=== PATIENT | female | born 1980 | race Caucasian/White ===

== ENCOUNTER 2017-05-27 21:46 | Observation (INO) | payer OTHER ==
[~2017-05-27 21:46] MED LIST: ACETAMINOPHEN 325 MG TAB PO PRN; ACETAMINOPHEN/HYDROcodone 325 MG/5 MG TAB PO PRN; ALBU6.7H INH; ALLO100T PO; ALPR-138 PO; ALPR0.5T3 PO; AUGM875 PO; BISACODYL 10 MG SUPP RECTAL PRN; CEPH500C3 PO; GLUCTAB; GUAI100S6 PO; HYDR12.56 PO; HYDR25TA5 PO; LACTULOSE SYRUP 20 GM/30 ML CUP PO PRN; LEVA500T33 PO; LEVO75TA3 PO; MORPHINE SULFATE 4 MG/ML INJ IV PUSH PRN; NAPR1TAB98 PO; OMEP20TA PO; ONDANSETRON HCL 4 MG/2 ML VIAL IVP PRN; PRED20 PO; PRIL10CA PO; ROSU10 PO; SENNOSIDES 8.6 MG TAB PO PRN; SENO8.6T5 PO; SIMV5TAB32 PO; SYNT25TA; TOPI1TAB97 PO; TRAM50TA PO; TRAZ100T6 PO; VENL150C39 PO; VENL25TA14 PO; VIVE0.02 T-DERMAL
[2017-05-27 21:56] VITALS: BP 150/70; PULSE 96; RESP 18; TEMP 99.5; O2SAT 96
--- NOTE | 2017-05-27 23:24 | HHI.HP ---
[facility] Service [facility] Primary Care Physician Robb Pierre MD Admission Diagnosis Diagnoses: Chief Complaint: increasing rectal pain Travel History International Travel<30 Days: No Contact w/Intl Traveler <30 Da: No History of Present Illness 37-year-old female with a history of hypothyroidism, anxiety, HLD, HTN, gout, GERD, gastroparesis and diabetes presented to the ED with complaints of severe rectal pain, constipation , and unable to void status post hemorrhoid banding 2 days ago. Patient states she underwent a hemorrhoid banding 2 days ago by a colorectal surgeon in [place], and what was supposed to be a 20 minute procedure ended up taking a few hours. Patient states ever since she has been in excruciating pain, 10 out of 10. She denies being discharged on any antibiotics and states the tramadol pain medicine was not helping. She has not had a bowel movement since before surgery, and has been unable to urinate. A Gates was placed in the deltoid ED prior to coming to the main facility. She does have associated nausea and states she vomited once this morning, and rectal ecchymosis. Patient denies any chest pain, shortness of breath, rectal bleeding, dizziness, rash or headaches. Review of Systems Except as stated in HPI: all other systems reviewed are Neg Past Family Social History Past Medical History Hypothyroidism Anxiety Depression HLD HTN Gout GERD Gastroparesis Diabetes Past Surgical History Hemorrhoid banding 05/26/17 Hysterectomy Reported Medications Reported Meds & Active Scripts Active Reported Hydrochlorothiazide 25 Mg Tab 25 Mg PO DAILY Crestor (Rosuvastatin Calcium) 10 Mg Tab 10 Mg PO DAILY Allopurinol 100 Mg Tab 100 Mg PO BID Alprazolam 0.5 Mg Tab 0.5 Mg PO Q6H PRN Levothyroxine (Levothyroxine Sodium) 75 Mcg Tab 75 Mcg PO DAILY Senokot (Sennosides) 8.6 Mg Tab 8.6 Mg PO DAILY Topiramate 25 Mg Tab 25 Mg PO BID Aleve PM (Naproxen Sodium-Diphenhydramine) 220-25 Mg Tab 2 Tab PO HS PRN Vivelle-Dot Patch 84 HR (Estradiol) 0.025 Mg/24 Hr Patch 1 Patch T-DERMAL 2XWEEK Remove old patch and discard when new patch being placed.Change same days of week. Omeprazole 20 Mg Tab 20 Mg PO BID Venlafaxine ER 24 HR (Venlafaxine HCl) 150 Mg Cap 150 Mg PO BID Trazodone (Trazodone HCl) 100 Mg Tablet 100 Mg PO HS Tramadol (Tramadol HCl) 50 Mg Tab 50 Mg PO Q6H PRN Allergies: Coded Allergies: [place] Thyroid (Verified Allergy, Severe, HIVES, 05/27/17) Pneumococcal Vaccine (Verified Allergy, Severe, LOCALIZED RXN, 05/27/17) Flu Vaccine (Verified Adverse Reaction, Severe, LOCALIZED RXN, 05/27/17) Tetanus Toxoid (Verified Adverse Reaction, Severe, LOCALIZED RXN, 05/27/17) Active Ordered Medications Current Medications Medications (Trade) Dose Ordered Sig/Golden Route Start Time Stop Time Status Last Admin (Tylenol) 650 mg Q4H PRN PO 05/27/17 20:45 05/27/17 22:04 (Zofran Inj) 4 mg Q6H PRN IVP 05/27/17 20:45 (Senokot) 17.2 mg Q12H PRN PO 05/27/17 20:45 (Dulcolax Supp) 10 mg DAILY PRN RECTAL 05/27/17 20:45 (Lactulose Liq) 30 ml DAILY PRN PO 05/27/17 20:45 Acetaminophen/ Hydrocodone Bitart 1 tab 1 tab Q6H PRN PO 05/27/17 20:45 Metronidazole 100 ml @ 100 mls/hr Q8H IV 05/28/17 00:00 05/28/17 00:19 (Cipro 400 Mg Premix) 200 ml @ 200 mls/hr Q12H IV 05/28/17 01:00 (Dilaudid Pf Inj) 0.2 mg Q4H PRN IV PUSH 05/28/17 00:00 05/28/17 00:17 Family History Dad: Heart disease Social History Patient denies any tobacco, alcohol, and illicit drug use Physical Exam Vital Signs Vital Signs Date Time Temp Pulse Resp B/P Pulse Ox O2 Delivery O2 Flow Rate FiO2 05/27/17 21:56 99.5 96 18 150/70 96 Physical Exam GENERAL: This is a well-nourished, well-developed patient, in no apparent distress. SKIN: rectal area ecchymosis. HEAD: Atraumatic. Normocephalic. EYES: Pupils equal round and reactive. ENT: Nose without bleeding, purulent drainage or septal hematoma. Airway patent. NECK: Trachea midline. No JVD or lymphadenopathy. Supple, nontender, no meningeal signs. CARDIOVASCULAR: Regular rate and rhythm without murmurs, gallops, or rubs. RESPIRATORY: Clear to auscultation. Breath sounds equal bilaterally. No wheezes , rales, or rhonchi. GASTROINTESTINAL: Abdomen soft, non-tender, nondistended. No hepato-splenomegaly , or palpable masses. No guarding. MUSCULOSKELETAL: Extremities without clubbing, cyanosis, or edema. No joint tenderness, effusion, or edema noted. No calf tenderness. NEUROLOGICAL: Awake and alert.Motor and sensory grossly within normal limits. Normal speech. Assessment and Plan Problem List: (1) Constipation ICD Code: K59.00 Status: Acute (2) Urinary retention ICD Code: R33.9 Status: Acute (3) Intractable pain ICD Code: R52 Status: Acute Assessment and Plan 37-year-old female with a history of hypothyroidism, anxiety, HLD, HTN, gout, GERD, gastroparesis and diabetes presented to the ED with complaints of severe rectal pain, constipation , and unable to void status post hemorrhoid banding 2 days ago. Patient states she underwent a hemorrhoid banding 2 days ago by a colorectal surgeon in [place], and what was supposed to be a 20 minute procedure ended up taking a few hours. Proctitis with Intractable pain, status post hemorrhoid banding 2 days ago Abdomen/pelvis CT shows mild edema surrounding the rectum suggesting mild proctitis. -Pain management with IV Dilaudid -Consult colorectal surgery for recommendations -IV antibiotics Flagyl and ciprofloxacin Fevers, MAXIMUM TEMPERATURE 101.[address] to hospital, suspecting due to recent surgery, no leukocytosis noted -Continue antibiotics as above -CBC in a.m. -UA and blood cultures ordered Constipation, somewhat chronic, a showed gastroparesis, recent constipation due to surgery -Stool softeners scheduled and prn Urinary retention, likely due to inflammation -Continue Gates DM, chronic: reorder home medications, and Accu checks Other chronic medical conditions: stable, will re order home medications when med rec is updated' DVT prophylaxis: SCDs Discussed Condition With Patient and RN Laura Ramírez May 27, 2017 23:24
[2017-05-27 23:27] VITALS: BP 139/79; PULSE 93; RESP 18; TEMP 100; O2SAT 95
[2017-05-28] MEDS: HYDROmorphone HCL PF 1 MG/ML VIAL IV PUSH PRN ×6 (00:17→20:17)
[2017-05-28] MEDS: metroNIDAZOLE 500 MG INJ 100 ML IV SCH ×4 (00:19→21:14)
[2017-05-28] MEDS ORDERED: CIPROFLOXACIN 400 MG PREMIX 200 ML IV SCH (01:00)
[2017-05-28 02:27] LABS: BASOPHIL % 0.5 % (0.0-2.0); EOSINOPHIL # 0.1 TH/MM3 (0-0.4); EOSINOPHIL % 2.1 % (0.0-4.0); HEMATOCRIT 31.7 % (35.0-46.0); HEMO FLAGS DIFF FINAL; LYMPH % 20.3 % (9.0-44.0); LYMPHOCYTE # 1.1 TH/MM3 (1.0-4.8); MEAN CELL VOLUME 68.8 FL (80.0-100.0); MEAN CORPUSCULAR HEMOGLOBIN 21.5 PG (27.0-34.0); MEAN CORPUSCULAR HGB CONC 31.3 % (32.0-36.0); MONO % 7.4 % (0.0-8.0); NEUT % 69.7 % (16.0-70.0); PLATELET COUNT 253 TH/MM3 (150-450); RED BLOOD COUNT 4.61 MIL/MM3 (4.00-5.30); RED CELL DISTRIBUTION WIDTH 16.4 % (11.6-17.2); WHITE BLOOD COUNT 5.7 TH/MM3 (4.0-11.0)
[2017-05-28 02:47] LABS: ALT (GPT) 28 U/L (10-53); ANION GAP 11 MEQ/L (5-15); AST (GOT) 14 U/L (15-37); BICARBONATE 27.2 MEQ/L (21.0-32.0); CHLORIDE 103 MEQ/L (98-107); GLOMERULAR FILTRATION RATE 90 ML/MIN (>89); POTASSIUM 3.6 MEQ/L (3.5-5.1); SODIUM (NA) 141 MEQ/L (136-145)
[2017-05-28 02:49] LABS: ALKALINE PHOSPHATASE 108 U/L (45-117); TOTAL BILIRUBIN ADULT 0.3 MG/DL (0.2-1.0)
[2017-05-28 02:51] LABS: BLOOD UREA NITROGEN 9 MG/DL (7-18)
[2017-05-28 03:28] VITALS: BP 138/73; PULSE 90; RESP 18; TEMP 99.7; O2SAT 96
[2017-05-28] MEDS: LEVOTHYROXINE SODIUM 75 MCG TAB PO SCH (06:38)
[2017-05-28] MEDS: CIPROFLOXACIN 400 MG PREMIX 200 ML IV SCH ×2 (08:00→20:04)
[2017-05-28 08:04] VITALS: BP 146/84; PULSE 101; RESP 21; TEMP 99.1; O2SAT 98
[2017-05-28] MEDS: metFORMIN HCL 500 MG TAB PO SCH ×2 (08:36→17:28)
[2017-05-28] MEDS: ATORVASTATIN 20 MG TAB PO SCH (08:36)
[2017-05-28] MEDS: SENNOSIDES 8.6 MG TAB PO SCH ×2 (08:36→20:06)
[2017-05-28] MEDS: PANTOPRAZOLE SOD 20 MG DELAYED RELEASE TAB PO SCH ×2 (08:37→20:05)
[2017-05-28] MEDS: TOPIRAMATE 25 MG TAB PO SCH ×2 (08:37→20:06)
[2017-05-28] MEDS: ALLOPURINOL 100 MG TAB PO SCH ×2 (08:37→20:06)
[2017-05-28] MEDS: HYDROCHLOROTHIAZIDE 25 MG TAB PO SCH (08:37)
[2017-05-28] MEDS: VENLAFAXINE HCL XR 75 MG CAP PO SCH ×2 (08:38→20:06)
--- NOTE | 2017-05-28 09:22 | HHI.PR ---
Subjective Remarks Anxious, tearful, crying out No BM since surgery 3 days ago Urinary retention Gates catheter in Fever (Prabha Bonilla) Objective Objective Results - Vital Signs Date Time Temp Pulse Resp B/P Pulse Ox O2 Delivery O2 Flow Rate FiO2 05/28/17 08:04 99.1 101 21 146/84 98 05/28/17 03:28 99.7 90 18 138/73 96 05/27/17 23:27 100.0 93 18 139/79 95 05/27/17 21:56 99.5 96 18 150/70 96 I/O 05/27/17 05/27/17 05/27/17 05/28/17 05/28/17 05/28/17 07:00 15:00 23:00 07:00 15:00 23:00 Output Total 1800 ml Balance -1800 ml Output Urine Total 1800 ml (Prabha Bonilla) Result Diagram: 05/28/1720905/28/17209 Medications and IVs Administered Medications Medications (Trade) Dose Ordered Sig/Golden Route PRN Reason Start Time Stop Time Status Last Admin Dose Admin Acetaminophen (Tylenol) 650 mg Q4H PRN PO TEMP > 100.4 05/27/17 20:45 05/27/17 22:04 Lactulose 30 ml 30 ml DAILY PRN PO SEVERE CONSITIPATION 05/27/17 20:45 05/28/17 08:38 Metronidazole (Flagyl 500 Mg Inj) 100 ml @ 100 mls/hr Q8H IV 05/28/17 00:00 05/28/17 08:38 Hydromorphone HCl (Dilaudid Pf Inj) 0.2 mg Q4H PRN IV PUSH pain 6-10 05/28/17 00:00 05/28/17 04:15 Sennosides (Senokot) 17.2 mg Q12H PO 05/28/17 09:00 05/28/17 08:36 Hydrochlorothiazide (Hydrodiuril) 25 mg DAILY PO 05/28/17 09:00 05/28/17 08:37 Levothyroxine Sodium (Synthroid) 75 mcg DAILY@06 PO 05/28/17 06:00 05/28/17 06:38 Topiramate (Topamax) 25 mg BID PO 05/28/17 09:00 05/28/17 08:37 Allopurinol (Zyloprim) 100 mg BID PO 05/28/17 09:00 05/28/17 08:37 Venlafaxine HCl (Effexor Xr) 150 mg BID PO 05/28/17 09:00 05/28/17 08:38 Pantoprazole Sodium (Protonix) 20 mg BID PO 05/28/17 09:00 05/28/17 08:37 Atorvastatin Calcium (Lipitor) 20 mg DAILY PO CM 05/28/17 09:00 05/28/17 08:36 Metformin HCl (Glucophage) 500 mg BIDPC PO 05/28/17 09:00 05/28/17 08:36 (Prabha Bonilla) ROS General: Fatigue, Weakness, Other GI: Abdominal Pain, BM (none) /MIS DIRECTOR: Dysuria (Gates catheter and for urinary retention and accurate I&O) Neuro/MS: Other (anxiety and crying) (Prabha Bonilla) Physical Exam Physical Exam PHYSICAL EXAMINATION GENERAL: This is a obese well-nourished female tearful and uncomfortable She is alert and awake, HEAD: Normocephalic without any lesion or mass noted. Facial features appear symmetric. OROPHARYNGEAL: Oropharynx without erythema or edema. NECK: Supple. No nuchal rigidity or lymphadenopathy. Trachea midline without deviation. CARDIAC: Regular rhythm, regular rate, S1 and S2 LUNGS: Clear to auscultation bilaterally. ABDOMEN: taut, Soft, nontender, no organomegaly or masses. Bowel sounds soft EXTREMITIES: no edema. Pulses equal bilateral. NEUROLOGICAL: Patient mood and affect tearful crying anxiety SKIN:Warm and dry (Prabha Bonilla) A/P Assessment and Plan Signs reviewed low-grade fever Labs reviewed, anemia mild probable secondary to recent surgery, continue to monitor labs Constipation, patient had hemorrhoid surgery this past Sunday which was 3 days ago, no bowel movement since surgery, intense rectal pain continues, failed outpatient treatment regimen, patient was bowel regimen is being and monitored lactulose ordered when necessary but given this morning along with Senokot Patient has been on bed rest and ambulating only to the bathroom since surgery, will have physical therapy work with her and ambulate Urinary retention, noted over the last 24 hours, Gates catheter in place with clear yellow urine Continue to monitor I&O and for any infection Anxiety, over current condition as well as pain Restart her Effexor and home meds as needed Fever, probable secondary to recent surgery and constipation, continue to monitor and give IV fluids Hypertension and GERD medical management Discussed with Dr. Torres, seen on his behalf Discussed with patient Discussed with nurse (Prabha Bonilla) Assessment and Plan seen, examined by myself, Dr Torres, today Discussed with patient and her mother Patient complaining of rectal pain, recent hemorrhoid surgery, also complaining of constipation CT of the abdomen yesterday showed proctitis, patient claims that she had a temperature 102 however this was not observed in the hospital Will provide analgesia and IV antibiotics GI consultation pending Discussed with mid level provider The exam, history, and the medical decision-making described in the above note were completed with the assistance of the mid-level provider. I reviewed the findings presented. I attest that I had a [id number] encounter with the patient on the same day, and personally performed and documented my assessment and findings in the medical record. (Alejandra Torres MD) Prabha Bonilla May 28, 2017 09:22 Alejandra Torres MD May 28, 2017 14:17
[2017-05-28] MEDS ORDERED: HYDROCORTISONE ACETATE 25 MG SUPP RECTAL ONE (11:45)
[2017-05-28 16:10] VITALS: BP 164/91; PULSE 92; RESP 18; TEMP 99.1; O2SAT 97
--- NOTE | 2017-05-28 17:53 | PD.CONS ---
HPI History of Present Illness This is a 37 year old female with hx HTN, GOUT, GERD, anxiety, DM, gastroparesis , who presented to the [place] ER with severe rectal pain, n/v, bloating, abd pain, constipation and inability to urinate after hemorrhoid banding surgery 3 days ago. She feels like her hemorrhoids were worse after the surgery. Has been having subjective fevers. Had the urge to urinate but was unable to for 24 hours, currently has rodriguez. She has been afraid to defecate due to the rectal pain and swelling. her last BM was 5days ago and was loose. She normally has alternating diarrhea and constipation; takes 6 senokots daily to have BMs. She last had colonoscopy and EGD 2months ago with Dr Stevenson in [place], findings include gastric polyp and hemorrhoids. She says the hydrocortisone suppository she was given in ER helped a great deal. PFSH Past Medical History Hypothyroidism Anxiety Depression HLD HTN Gout GERD Gastroparesis Diabetes Past Surgical History Hemorrhoid banding 05/26/17 Hysterectomy Coded Allergies: [place] Thyroid (Verified Allergy, Severe, HIVES, 05/27/17) Pneumococcal Vaccine (Verified Allergy, Severe, LOCALIZED RXN, 05/27/17) Flu Vaccine (Verified Adverse Reaction, Severe, LOCALIZED RXN, 05/27/17) Tetanus Toxoid (Verified Adverse Reaction, Severe, LOCALIZED RXN, 05/27/17) Family History Dad: Heart disease Social History Patient denies any tobacco, alcohol, and illicit drug use Review of Systems Constitutional: COMPLAINS OF: Fever Endocrine: DENIES: Polyuria Eyes: DENIES: Blurred vision Ears, nose, mouth, throat: DENIES: Hearing loss Respiratory: DENIES: Cough Cardiovascular: DENIES: Chest pain Gastrointestinal: COMPLAINS OF: Abdominal pain, Constipation, Diarrhea, Nausea , Vomiting, DENIES: Black stools, Bloody stools, Hematemesis Genitourinary: DENIES: Hematuria Musculoskeletal: DENIES: Joint Swelling Integumentary: DENIES: Pruritus Neurologic: DENIES: Abnormal gait Psychiatric: DENIES: Confusion GI Exam Vitals I&O Vital Signs Date Time Temp Pulse Resp B/P Pulse Ox O2 Delivery O2 Flow Rate FiO2 05/28/17 16:10 99.1 92 18 164/91 97 05/28/17 08:04 99.1 101 21 146/84 98 05/28/17 03:28 99.7 90 18 138/73 96 05/27/17 23:27 100.0 93 18 139/79 95 05/27/17 21:56 99.5 96 18 150/70 96 I/O 05/27/17 05/27/17 05/27/17 05/28/17 05/28/17 05/28/17 07:00 15:00 23:00 07:00 15:00 23:00 Output Total 1800 ml Balance -1800 ml Output Urine Total 1800 ml Laboratory Test 05/28/17 02:10 White Blood Count 5.7 TH/MM3 Red Blood Count 4.61 MIL/MM3 Hemoglobin 9.9 GM/DL Hematocrit 31.7 % Mean Corpuscular Volume 68.8 FL Mean Corpuscular Hemoglobin 21.5 PG Mean Corpuscular Hemoglobin 31.3 % Concent Red Cell Distribution Width 16.4 % Platelet Count 253 TH/MM3 Mean Platelet Volume 7.4 FL Neutrophils (%) (Auto) 69.7 % Lymphocytes (%) (Auto) 20.3 % Monocytes (%) (Auto) 7.4 % Eosinophils (%) (Auto) 2.1 % Basophils (%) (Auto) 0.5 % Neutrophils # (Auto) 4.0 TH/MM3 Lymphocytes # (Auto) 1.1 TH/MM3 Monocytes # (Auto) 0.4 TH/MM3 Eosinophils # (Auto) 0.1 TH/MM3 Basophils # (Auto) 0.0 TH/MM3 CBC Comment DIFF FINAL Differential Comment Sodium Level 141 MEQ/L Potassium Level 3.6 MEQ/L Chloride Level 103 MEQ/L Carbon Dioxide Level 27.2 MEQ/L Anion Gap 11 MEQ/L Blood Urea Nitrogen 9 MG/DL Creatinine 0.73 MG/DL Estimat Glomerular Filtration 90 ML/MIN Rate Random Glucose 101 MG/DL Calcium Level 8.1 MG/DL Total Bilirubin 0.3 MG/DL Aspartate Amino Transf 14 U/L (AST/SGOT) Alanine Aminotransferase 28 U/L (ALT/SGPT) Alkaline Phosphatase 108 U/L Total Protein 6.0 GM/DL Albumin 3.3 GM/DL Date/Time Procedure Status Source Growth 05/28/17 02:10 Aerobic Blood Culture Resulted Blood Peripheral Pending 05/28/17 02:10 Anaerobic Blood Culture - Final Resulted Blood Peripheral QNS - SEE AEROBE REPORT Physical Examination HEENT: PERRL; normocephalic; atraumatic; no jaundice. CHEST: CTA CARDIAC: RRR ABDOMEN: Soft, nondistended, diffuse TTP; no hepatosplenomegaly; bowel sounds are present in all four quadrants.; rectal area with minor visible bruising, visible swollen ext hemorrhoids, no arleen blood EXTREMITIES: No clubbing, cyanosis, or edema. SKIN: Normal; no rash; no jaundice. STOCK SUPERVISOR: No focal deficits; alert and oriented times three. Assessment and Plan Plan ASSESSMENT - n/v - could be r/t gastroparesis - abd pain - could be constipation, gastroparesis - rectal pain, - proctitis s/p internal hemorrhoid surgery, CT shows proctitis - fevers - pt c/o subjective fevers. low grade fever recorded in ER, on flagyl PLAN - continue flagyl - hydrocortisone suppositories - miralax 34g q2h x 4 doses - consider IVF - await colorectal surgery consult - supportive care - further recs to follow This pt seen by myself and Dr Coy and this note is written on his behalf Yessenia Mooney May 28, 2017 17:53
[2017-05-28] MEDS: HYDROCORTISONE ACETATE 25 MG SUPP RECTAL SCH (19:21)
[2017-05-28] MEDS: POLYETHYLENE GLYCOL 17 GM PKG PO SCH ×3 (19:22→22:00)
[2017-05-28 20:26] VITALS: BP 137/80; PULSE 85; RESP 19; TEMP 99.1; O2SAT 98
[2017-05-28] MEDS ORDERED: traZODone HCL 100 MG TAB PO SCH (21:00)
[2017-05-29 00:40] VITALS: BP 136/82; PULSE 94; RESP 18; TEMP 98.9; O2SAT 100
[2017-05-29] MEDS: metroNIDAZOLE 500 MG INJ 100 ML IV SCH ×3 (02:00→15:56)
[2017-05-29] MEDS: HYDROmorphone HCL PF 1 MG/ML VIAL IV PUSH PRN ×3 (02:00→16:22)
[2017-05-29 03:40] VITALS: BP 133/82; PULSE 84; RESP 18; TEMP 98.7; O2SAT 98
[2017-05-29] MEDS: LEVOTHYROXINE SODIUM 75 MCG TAB PO SCH (06:08)
[2017-05-29 07:48] LABS: AUTOMATED NEUTROPHIL # 4.6 TH/MM3 (1.8-7.7); BASOPHIL % 0.4 % (0.0-2.0); EOSINOPHIL # 0.2 TH/MM3 (0-0.4); EOSINOPHIL % 2.4 % (0.0-4.0); HEMATOCRIT 34.2 % (35.0-46.0); HEMO FLAGS DIFF FINAL; LYMPH % 16.4 % (9.0-44.0); LYMPHOCYTE # 1.1 TH/MM3 (1.0-4.8); MEAN CELL VOLUME 69.6 FL (80.0-100.0); MEAN CORPUSCULAR HEMOGLOBIN 21.9 PG (27.0-34.0); MEAN CORPUSCULAR HGB CONC 31.4 % (32.0-36.0); MONO % 11.8 % (0.0-8.0); PLATELET COUNT 296 TH/MM3 (150-450); RED BLOOD COUNT 4.92 MIL/MM3 (4.00-5.30); RED CELL DISTRIBUTION WIDTH 16.6 % (11.6-17.2); WHITE BLOOD COUNT 6.7 TH/MM3 (4.0-11.0)
[2017-05-29 08:10] LABS: BICARBONATE 25.4 MEQ/L (21.0-32.0); POTASSIUM 3.3 MEQ/L (3.5-5.1)
[2017-05-29] MEDS ORDERED: SODIUM CHLORID 0.9% 500 ML INJ 500 ML IV SCH (08:30)
--- NOTE | 2017-05-29 08:39 | HHI.PR ---
Subjective Remarks Alert, awake Much calmer today and able to carry on a conversation No BM since surgery Gates catheter removed we'll check for any urinary retention Fever resolved today (Prabha Bonilla) Remarks seen, examined by myself, Dr Torres, today Discussed with patient Discharge home on oral antibiotics after having a bowel movement Discussed with mid level provider The exam, history, and the medical decision-making described in the above note were completed with the assistance of the mid-level provider. I reviewed the findings presented. I attest that I had a [id number] encounter with the patient on the same day, and personally performed and documented my assessment and findings in the medical record. (Alejandra Torres MD) Objective Objective Results - Vital Signs Date Time Temp Pulse Resp B/P Pulse Ox O2 Delivery O2 Flow Rate FiO2 05/29/17 03:40 98.7 84 18 133/82 98 05/29/17 00:40 98.9 94 18 136/82 100 05/28/17 20:26 99.1 85 19 137/80 98 05/28/17 16:10 99.1 92 18 164/91 97 I/O 05/28/17 05/28/17 05/28/17 05/29/17 05/29/17 05/29/17 07:00 15:00 23:00 07:00 15:00 23:00 Output Total 1800 ml 750 ml Balance -1800 ml -750 ml Output Urine Total 1800 ml 750 ml (Prabha Bonilla) Result Diagram: 05/29/17 0640 05/29/17 0640 ROS General: Weakness (mild generalized), Other (10 point ROS done positives noted) GI: Abdominal Pain (mild but improved), N/V (bouts of nausea but no vomiting) /SOFTWARE ENGINEER KERNEL: Other (urinary retention on admission Gates DC'd we'll evaluate) Neuro/MS: Other (anxiety improved) (Prabha Bonilla) Physical Exam Physical Exam PHYSICAL EXAMINATION GENERAL: This is a well-developed, well-nourished obese female who appears to be in no acute distress. She is alert and awake, HEAD: Normocephalic , atraumatic Facial features appear symmetric. OROPHARYNGEAL: Oropharynx dry but clear NECK: Supple. Trachea midline without deviation. CARDIAC: Regular rhythm, regular rate, S1 and S2 are heard. LUNGS: Clear to auscultation bilaterally. ABDOMEN: taut, mild tenderness, no organomegaly or masses. Bowel sounds soft No rebound. EXTREMITIES: no edema. Pulses equal bilateral. NEUROLOGICAL: Patient mood and affect appropriate. No focal deficit SKIN:Warm and moist (Prabha Bonilla) A/P Assessment and Plan Vital signs reviewed, no further fever today, BP normal trends Labs reviewed Constipation, patient had hemorrhoid surgery this past Sunday which was 3 days ago, no bowel movement since surgery, intense rectal pain continues, failed outpatient treatment regimen, patient refused lactulose yesterday and had severe abdominal pain, cramping until she started passing gas. Abdomen pain much improved today, but still no BM. Added MiraLAX every 3 hours 4 doses today or until patient has bowel movement Patient has been on bed rest and ambulating only to the bathroom since surgery, PT came last night and ambulated patient, she appears stable with ambulation. Encouraged multiple times today to sit up in chair and ambulate. Appreciate GI consult and expert opinion Urinary retention, noted over the last 24 hours, Gates catheter DC'd this morning. Will evaluate her ability to urinate. May reinsert if no voiding in 8 hours Continue to monitor I&O and for any infection, patient still having some bouts of nausea but no vomiting, not taking by mouth fluids as needed, will give 500 cc bag this a.m. at 100 cc an hour to hydrate. Encouraged again the need to drink fruit juices water and by mouth liquids Anxiety, over current condition as well as pain, improved today Effexor and home meds as needed Fever, resolved Proctitis, seen on CT scan. We'll monitor patient's pain, labs, and ability to defecate Hypertension and GERD medical management Hypokalemia, noted on labs this morning 3.3, added KCl by mouth dose 20 mEq 1, Will recheck BMP in the morning Discussed with Dr. Torres, seen on his behalf Discussed with patient Discussed with nurse Discharge planning hopefully within the next day or 2 (Prabha Bonilla) Prabha Bonilla May 29, 2017 08:39 Alejandra Torres MD May 29, 2017 14:10
[2017-05-29 08:45] VITALS: BP 123/86; PULSE 91; RESP 20; TEMP 98.5; O2SAT 96
[2017-05-29] MEDS ORDERED: POTASSIUM CHLORIDE 10 MEQ CAP PO ONE (08:45)
[2017-05-29] MEDS: POLYETHYLENE GLYCOL 17 GM PKG PO SCH ×5 (08:50→18:00)
[2017-05-29] MEDS: SENNOSIDES 8.6 MG TAB PO SCH (08:51)
[2017-05-29] MEDS: HYDROCHLOROTHIAZIDE 25 MG TAB PO SCH (08:51)
[2017-05-29] MEDS: HYDROCORTISONE ACETATE 25 MG SUPP RECTAL SCH ×3 (08:51→18:00)
[2017-05-29] MEDS: ALLOPURINOL 100 MG TAB PO SCH (08:52)
[2017-05-29] MEDS: ATORVASTATIN 20 MG TAB PO SCH (08:52)
[2017-05-29] MEDS: PANTOPRAZOLE SOD 20 MG DELAYED RELEASE TAB PO SCH (08:52)
[2017-05-29] MEDS: TOPIRAMATE 25 MG TAB PO SCH (08:52)
[2017-05-29] MEDS: metFORMIN HCL 500 MG TAB PO SCH ×2 (08:53→18:22)
[2017-05-29] MEDS: VENLAFAXINE HCL XR 75 MG CAP PO SCH (08:53)
[2017-05-29] MEDS: CIPROFLOXACIN 400 MG PREMIX 200 ML IV SCH (08:54)
[2017-05-29] MEDS ORDERED: LACTULOSE SYRUP 20 GM/30 ML CUP PO SCH (09:00)
--- NOTE | 2017-05-29 09:20 | HHI.GIFU ---
Subjective Remarks Resting in bed. Still with intermittent nausea, abdominal pain. Had hemorrhoid surgery on Sunday- no bm since that time. Nervous to have bowel movement since her surgery. States she has not had anything to eat since Sunday- states she is afraid to eat because of the nausea and pain. Objective Vitals I&O Vital Signs Date Time Temp Pulse Resp B/P Pulse Ox O2 Delivery O2 Flow Rate FiO2 05/29/17 08:45 98.5 91 20 123/86 96 05/29/17 03:40 98.7 84 18 133/82 98 05/29/17 00:40 98.9 94 18 136/82 100 05/28/17 20:26 99.1 85 19 137/80 98 05/28/17 16:10 99.1 92 18 164/91 97 I/O 05/28/17 05/28/17 05/28/17 05/29/17 05/29/17 05/29/17 07:00 15:00 23:00 07:00 15:00 23:00 Output Total 1800 ml 750 ml Balance -1800 ml -750 ml Output Urine Total 1800 ml 750 ml Laboratory Laboratory Tests Test 05/29/17 06:40 White Blood Count 6.7 Red Blood Count 4.92 Hemoglobin 10.8 Hematocrit 34.2 Mean Corpuscular Volume 69.6 Mean Corpuscular Hemoglobin 21.9 Mean Corpuscular Hemoglobin 31.4 Concent Red Cell Distribution Width 16.6 Platelet Count 296 Mean Platelet Volume 7.6 Neutrophils (%) (Auto) 69.0 Lymphocytes (%) (Auto) 16.4 Monocytes (%) (Auto) 11.8 Eosinophils (%) (Auto) 2.4 Basophils (%) (Auto) 0.4 Neutrophils # (Auto) 4.6 Lymphocytes # (Auto) 1.1 Monocytes # (Auto) 0.8 Eosinophils # (Auto) 0.2 Basophils # (Auto) 0.0 CBC Comment DIFF FINAL Differential Comment Sodium Level 137 Potassium Level 3.3 Chloride Level 100 Carbon Dioxide Level 25.4 Anion Gap 12 Blood Urea Nitrogen 9 Creatinine 0.75 Estimat Glomerular Filtration 87 Rate Random Glucose 119 Calcium Level 8.7 Date/Time Procedure Status Source Growth 05/28/17 02:10 Aerobic Blood Culture Resulted Blood Peripheral Pending 05/28/17 02:10 Anaerobic Blood Culture - Final Resulted Blood Peripheral QNS - SEE AEROBE REPORT Physical Exam HEENT: Normocephalic; atraumatic; no jaundice. CHEST: CTA CARDIAC: RRR ABDOMEN: Soft, obese, nondistended, nontender; no hepatosplenomegaly; bowel sounds are present in all four quadrants. EXTREMITIES: No clubbing, cyanosis, or edema. SKIN: Normal; no rash; no jaundice. MODELER: No focal deficits; alert and oriented times three. Assessment and Plan Plan ASSESSMENT - N/V, Abdominal pain. Pt does have a history of gastroparesis, chronic constipation. CT abdomen and pelvis (05/27/17)----> mild edema surrounding the rectum suggesting mild proctitis . No high-grade inflammatory changes. No organized fluid. Fatty liver. Nonspecific splenomegaly. - Proctitis, rectal pain. CT as above. Pt s/p recent hemorrhoid surgery last Sunday with Dr. Navarro in [facility]. Flagyl, Hemorrhoid suppositories. - Constipation. Takes Senna 3 tabs BID at home and states this normally controls her constipation. Miralax. - Fevers, c/o subjective fevers. low grade fever on 05/28, none since. - Gastroparesis. Had tremors with reglan. No relief with EES. Trial of bethanechol - Anemia, mild. 10.8/34.2. PLAN - [facility] - Trial of bethanechol - Cont. Hydrocortisone suppositories - Colace 100mg po BID - Miralax - CRS evaluation - Supportive care - Further recommendations to follow based on results of above - Pt seen and examined by Dr. Coy and myself and this note is written on his behalf Mell Denise May 29, 2017 09:20
[2017-05-29 13:08] VITALS: BP 152/85; PULSE 90; RESP 16; TEMP 99.2; O2SAT 98
[2017-05-29] MEDS ORDERED: BETHANECHOL CHL 25 MG TAB PO SCH (14:00)
[2017-05-29] MEDS ORDERED: Ceftin PO (14:14)
[2017-05-29] MEDS ORDERED: METR-1 PO (14:14)
[2017-05-29 15:50] VITALS: BP 136/87; PULSE 95; RESP 18; TEMP 98.3; O2SAT 95
[2017-05-29] MEDS ORDERED: MINERAL OIL ENEMA 118 ML BTL RECTAL ONE (18:15)
[2017-05-29] MEDS ORDERED: DOCUSATE SODIUM 100 MG CAP PO SCH (21:00)
== END 2017-05-29 20:02 | disposition left against medical advice (07) ==
LOC: NEDDLT 21:46 → NEPGCP 21:52
PROVIDERS: ADMIT Specialist; ATTEND Specialist
DX: N99.89 Other postprocedural complications and disorders of genitourinary system (principal); Z98.890 Other specified postprocedural states; K62.89 Other specified diseases of anus and rectum; K59.09 Other constipation; R50.9 Fever, unspecified; R73.9 Hyperglycemia, unspecified
CPT/HCPCS: 74177; 76937; 80048; 80053; 81001; 82948; 85025; 87040; 96365; 96366; 96367; 96374; 96375; 96376; 97161; 99285; G0378; G8987; G8988; G8989; J0744; J1170; J2270; J2405; J7030; J7040; Q9963; Q9967